=== PATIENT | female | born 1950 | race Two or more races ===

== ENCOUNTER 2023-11-09 11:30 | Emergency (ER) | payer OTHER, SELFPAY ==
[2023-11-09] VITALS (7 sets, daily range): BP systolic 109–131; BP diastolic 64–90; BMI 30.5
--- NOTE | 2023-11-09 12:45 | ED.GENMED ---
History of Present Illness
<Kiki Nelson PA-C - Last Filed: 11/09/23 18:42>
General
Chief Complaint: Abdominal Pain
Source: patient
Exam Limitations: none
Time Seen by Provider: 11/09/23 12:14
Nursing documentation reviewed up to this point in time: agreed with
History of Present Illness
History of Present Illness:
Patient is a 73-year-old female presenting to the emergency department for evaluation of abdominal pain with associated nausea, vomiting, and diarrhea. Patient states that she started with some upper abdominal discomfort yesterday evening and then
around 3 AM she began with significant nausea associate with multiple episodes of vomiting diarrhea. Patient states she has had vomiting and diarrhea episodes all morning. States she is feels dehydrated and mildly weak. She was seen in an urgent
care facility's morning who recommended that she come to the emergency department for ultrasound and further evaluation.
Patient denies any fevers. Patient denies any chest pain or shortness of breath. Patient denies any urinary symptoms.
Patient denies any blood in her stool. Patient denies any recent antibiotic use or hospitalizations.
Patient has had a hysterectomy, cholecystectomy, and appendectomy in the past.
Review of Systems
<Kiki Nelson PA-C - Last Filed: 11/09/23 18:42>
Review of Systems
Allergies reviewed?: Yes
All Other Systems: ROS reviewed and negative except as documented in HPI and ROS
Phy Exam
<Kiki Nelson PA-C - Last Filed: 11/09/23 18:42>
Physical Exam
Physical Exam:
Vitals: Patient's vital signs are stable. Afebrile
General: Patient is well appearing, no acute distress. Nontoxic-appearing
Skin: Warm and dry, no rashes or lesions
Head: Normocephalic, atraumatic
Eyes: Sclera nonicteric. EOMs intact. No nystagmus.
Throat: Protecting airway
Neck: Normal ROM, no cervical spine tenderness, no meningismus
Cardiac: Regular rate and rhythm, no murmurs.
Pulm: Normal respiratory effort, no wheezes, rales, rhonchi heard on exam.
Abdomen: Abdomen soft. Mild diffuse abdominal tenderness without rebound tenderness or guarding. Well-healing scars in right upper quadrant and right lower quadrant from prior cholecystectomy and appendectomy. Well-healing vertical incision in
suprapubic region from prior hysterectomy.
Extremities: No evidence of cyanosis or edema. Great distal pulses
Neuro: AAOx3. CN II-XII intact. No focal neurologic deficits.
Psychiatric: Normal affect.
Course
<Kiki Nelson PA-C - Last Filed: 11/09/23 18:42>
Orders/Labs/Results
Orders:
Orders
11/09/23 12:46
0.9% Sodium Chloride 1000 ml [Nss] 1,000 ml IV BOLUS
Ondansetron Injectable [Zofran] 4 mg IV NOW STA
11/09/23 12:49
Electrocardiogram (*1) Urgent
Reason for Study: Abdominal Pain
CT Abd/Pel (IV only)-[facility] only Urgent
Comment:
Reason For Exam: lower abdominal pain, N/V, diarrhea
EKG- Treatment ONCE
11/09/23 12:51
Basic Metabolic Panel Urgent
Complete Blood Count/With Diff Urgent
Lipase Urgent
11/09/23 15:01
Urinalysis Reflex To Culture Urgent
Date Specimen was Collected: 11/09/23
Time Specimen was Collected: 14:58
11/09/23 15:29
Comprehensive Metabolic Panel Urgent
Abnormal Lab Results
11/09/23 11/09/23
12:51 15:29
WBC 10.9 H 10^3/uL
(4.8-10.8)
MCH 32.2 H pg
(27.0-31.0)
Absolute Neuts (auto) 8.8 H 10^3/uL
(1.4-6.5)
Absolute Monos (auto) 0.8 H 10^3/uL
(0.1-0.6)
Neutrophils % 80.8 H %
(42.2-75.2)
Lymphocytes % 11.1 L %
(20.5-51.1)
Glucose 105 H mg/dl 104 H mg/dl
(70-99) (70-99)
11/09/23 12:51
11/09/23 15:29
Vital Signs
Initial and Last Documented VS:
Initial Vital Signs
Temp Pulse Resp BP Pulse Ox
98.6 F 88 18 131/90 100
11/09/23 11:38 11/09/23 11:38 11/09/23 11:38 11/09/23 11:38 11/09/23 11:38
Last Documented Vital Signs
Temp Pulse Resp BP Pulse Ox
98.6 F 79 19 109/77 97
11/09/23 11:38 11/09/23 17:04 11/09/23 17:04 11/09/23 17:04 11/09/23 17:04
<Christophe Ferrari MD - Last Filed: 11/09/23 18:58>
Orders/Labs/Results
Orders:
Orders
11/09/23 12:46
0.9% Sodium Chloride 1000 ml [Nss] 1,000 ml IV BOLUS
Ondansetron Injectable [Zofran] 4 mg IV NOW STA
11/09/23 12:49
Electrocardiogram (*1) Urgent
Reason for Study: Abdominal Pain
CT Abd/Pel (IV only)-[facility] only Urgent
Comment:
Reason For Exam: lower abdominal pain, N/V, diarrhea
EKG- Treatment ONCE
11/09/23 12:51
Basic Metabolic Panel Urgent
Complete Blood Count/With Diff Urgent
Lipase Urgent
11/09/23 15:01
Urinalysis Reflex To Culture Urgent
Date Specimen was Collected: 11/09/23
Time Specimen was Collected: 14:58
11/09/23 15:29
Comprehensive Metabolic Panel Urgent
Abnormal Lab Results
11/09/23 11/09/23
12:51 15:29
WBC 10.9 H 10^3/uL
(4.8-10.8)
MCH 32.2 H pg
(27.0-31.0)
Absolute Neuts (auto) 8.8 H 10^3/uL
(1.4-6.5)
Absolute Monos (auto) 0.8 H 10^3/uL
(0.1-0.6)
Neutrophils % 80.8 H %
(42.2-75.2)
Lymphocytes % 11.1 L %
(20.5-51.1)
Glucose 105 H mg/dl 104 H mg/dl
(70-99) (70-99)
11/09/23 12:51
11/09/23 15:29
Vital Signs
Initial and Last Documented VS:
Initial Vital Signs
Temp Pulse Resp BP Pulse Ox
98.6 F 88 18 131/90 100
11/09/23 11:38 11/09/23 11:38 11/09/23 11:38 11/09/23 11:38 11/09/23 11:38
Last Documented Vital Signs
Temp Pulse Resp BP Pulse Ox
98.6 F 79 19 109/77 97
11/09/23 11:38 11/09/23 17:04 11/09/23 17:04 11/09/23 17:04 11/09/23 17:04
<Kiki Nelson PA-C - Last Filed: 11/09/23 18:42>
MDM/Problems Addressed
Differential Diagnosis Includes:
Not limited to: Viral gastritis, colitis, diverticulitis, cystitis, nephrolithiasis, pancreatitis,
MDM/Problems Addressed:
73-year-old female with no significant past medical history presenting with 1 day of upper abdominal pain and nausea, vomiting, diarrhea. Sent by urgent care for abdominal ultrasound. Vital stable on arrival. She is afebrile. Exam as above.
Surgical scars present in abdomen from prior cholecystectomy, appendectomy and hysterectomy. Abdomen is soft with mild diffuse tenderness. No rebound tenderness or guarding. There is no CVA tenderness. Is well-appearing, nontoxic-appearing.
Labs are obtained which show a very mild leukocytosis with a white count of 10.9�likely reactive. Otherwise no clinically significant abnormalities. Lipase normal. Patient was given a liter of IV fluids and 4 of Zofran. Urine shows no signs of
infection. CT is pending.
Patient was monitored in the emergency department for few hours while CT report was pending. She has had no episodes of vomiting. Patient has also had no episodes of diarrhea and has been unable to provide stool sample for culture although no risk
factors for bacterial etiology of diarrhea. CT scan does show findings consistent with possible enteritis. This would describe patient's symptoms. Otherwise there were a few incidental findings found on CT scan including nodule in right lung and
left adnexal area cyst. Patient was given CT report document any findings to have been followed up by her primary care/[facility]. Otherwise at this time patient is stable for discharge�no indication for admission at this time. Suspect likely viral
enteritis. Return precautions discussed. Patient comfortable with plan. All questions answered.
Chronic conditions affecting care:
N/A
Acute Exacerbation and/or Progression of Chronic Illness:
N/A
<Kiki Nelson PA-C - Last Filed: 11/09/23 18:42>
*Radiology
Radiology exam reviewed: radiology read reviewed
*Pulse Oximetry
Patient hypoxic: no
*EKG
Interpreted by ED Provider?: Yes
EKG Intrepretation Date: 11/09/23
Interpretation: normal
Comparison EKG: no comparison EKG present
Heart Rate: 69
Rate: normal
Rhythm: sinus
Ischemia: no ischemia
*Echocardiography Radiology Technologist Interpretation
Rate: Echocardiography Radiology Technologist- N/A
*Critical Care Note
Total Time (30-74mins, 75-104mins- exclusive of procedures): Not Applicable
ED Attending Note
<Kkii Nelson PA-C - Last Filed: 11/09/23 18:42>
-
Portions of this chart may have been created with voice recognition software.� Occasional wrong word or��sound alike� substitutions may have occurred due to the inherent limitations of voice recognition software.
<Christophe Ferrari MD - Last Filed: 11/09/23 18:58>
ED Attending Note
Patient seen and examined by attending physician: Yes
I performed the substantive portion of visit, reviewed & personally made and approve the management plan that is documented in note by myself or NICKY.: Yes
ED Attending Note:
73-year-old female started with nausea vomiting diarrhea some vague abdominal symptoms. Symptoms started yesterday. On exam patient is nontoxic in no distress. Warm and dry. Lungs clear and equal. Heart regular rate and rhythm no murmur.
Abdomen soft. Multiple old scars. Mild epigastric tenderness. No rebound or guarding no mass or hernia. Labs are stable. CT scan with no acute findings except for enteritis. No indication for admission. Symptomatic treatment and follow-up.
Patient given a copy of the CT report for follow-up of her adnexal cyst and pulmonary nodule.
Discharge Plan
Departure
Patient Disposition: Home (Routine Discharge)
Date of Disposition: 11/09/23
Time of Disposition: 16:35
Patient with high blood pressure during this ER visit?: No
Condition: Good
Covid-19: Not Applicable
Discharge Problem:
Nausea, vomiting and diarrhea, Abdominal pain
Instructions: Nausea and Vomiting, Adult (DC), Diarrhea, Adult ED, Abdominal Pain
Referrals:
Pasha Ryan MD [Family Provider] - Follow up in 5-7 days
Activity Restrictions/Additional Instructions:
RETURN TO EMERGENCY DEPARTMENT WITH ANY FEVERS, CHILLS, INTRACTABLE NAUSEA/VOMITING, SEVERE ABDOMINAL PAIN, SIGNS OF SEVERE DEHYDRATION, WORSENING IN CURRENT SYMPTOMS, OR ANY OTHER CONCERNS
-As discussed�there were a few incidental finding seen on your CT scan today. You should follow-up with your primary care provider for further evaluation of nodule in your right lung and a cyst near your left ovary. These may require follow-up
imaging.
-You should stay well-hydrated. Eat a bland diet over the next few days and advance as tolerated.
-Follow-up with your primary care provider for further evaluation/management to ensure that symptoms are improving
Interventions
Interventions:
*Risk Screen - Suicide Last Done: 11/09/23 12:38
*General Assessment Last Done: 11/09/23 12:38
*Neglect/Abuse Screening Last Done: 11/09/23 12:38
ED- Fall Risk Assessment Last Done: 11/09/23 12:38
*ED COVID-19 Vaccine History Last Done: 11/09/23 12:38
*Nursing Disposition Last Done: 11/09/23 17:04
OG-Vhjyys-Wjmzzrcair Assessment Last Done: 11/09/23 12:38
Discharge Date and Time
Discharge Date/Time: 11/09/23 17:05
Print Language: Panamanian
[2023-11-09] MEDS: ZOFRAN 4 MG IV (12:56)
[2023-11-09] MEDS: NSS 1000 IV (12:56)
[2023-11-09 13:11] LABS: % Basophils 0.3 % (0-2); % Eosinophils 0.6 % (0-6); % Immature Granulocytes 0.3 % (0-0.5); % Lymphocytes 11.1 % (20.5-51.1); % Monocytes 6.9 % (1.7-9.3); % Neutrophils 80.8 % (42.2-75.2); Absolute Eosinophils 0.1 10^3/uL (0-0.7); Absolute Lymphocytes 1.2 10^3/uL (1.2-3.4); Absolute Monocytes 0.8 10^3/uL (0.1-0.6); Absolute Neutrophils 8.8 10^3/uL (1.4-6.5); Hematocrit 39.3 % (37.0-47.0); Hemoglobin 13.7 g/dL (12.0-16.0); Mean Corp Hgb Conc. 34.9 g/dL (33.0-37.0); Mean Corpuscular Hgb 32.2 pg (27.0-31.0); Mean Corpuscular Volume 92.5 fL (81.0-99.0); Mean Platelet Volume 10.1 fL (7.4-10.4); Nucleated Red Blood Cells % 0 %; Platelet Count 260 10^3/uL (130-400); Red Blood Cell Count 4.25 10^6/uL (4.20-5.40); White Blood Cell Count 10.9 10^3/uL (4.8-10.8)
[2023-11-09 13:21] LABS: Blood Urea Nitrogen 14 mg/dl (7-17); Calcium 9.3 mg/dl (8.4-10.2); Carbon Dioxide 27 mmol/L (22-30); Chloride 102 mmol/L (98-107); Estimated Creatinine Clearance 72 ml/min; Glucose 105 mg/dl (70-99); Lipase 83 U/L (23-300); Sodium 136 mmol/L (135-145); eGFR > 60.00
[2023-11-09 15:12] LABS: Urine Albumin Negative (Neg - Trace); Urine Bilirubin Negative (Negative); Urine Character Clear (Clear); Urine Color Yellow; Urine Glucose Negative (Negative); Urine Ketone Negative (Negative); Urine Leukocyte Negative (Negative); Urine Nitrite Negative (Negative); Urine Occult Blood Negative (Negative); Urine Specific Gravity 1.005 (<1.030); Urine Urobilinogen Negative (Neg - 1+)
[2023-11-09 16:21] LABS: ALT (SGPT) 15 U/L (0-35); AST (SGOT) 21 U/L (14-36); Alkaline Phosphatase 70 U/L (38-126); Blood Urea Nitrogen 12 mg/dl (7-17); Calcium 8.9 mg/dl (8.4-10.2); Carbon Dioxide 24 mmol/L (22-30); Chloride 105 mmol/L (98-107); Estimated Creatinine Clearance 72 ml/min; Glucose 104 mg/dl (70-99); Potassium 4.4 mmol/L (3.5-5.1); Sodium 137 mmol/L (135-145); Total Bilirubin 1.3 mg/dl (0.2-1.3); Total Protein 6.7 g/dl (6.3-8.2); eGFR > 60.00
== END 2023-11-09 17:05 | disposition home or self-care (01) ==
LOC: EMR 11:30
PROVIDERS: Physician Assistant; EMERGENCY PHYSICIAN Emergency Medicine; FAMILY PHYSICIAN Internal Medicine
DX: R11.2 Nausea with vomiting, unspecified (principal); R19.7 Diarrhea, unspecified; R10.30 Lower abdominal pain, unspecified; R53.1 Weakness; R91.1 Solitary pulmonary nodule; Z90.49 Acquired absence of other specified parts of digestive tract; Z88.8 Allergy status to other drugs, medicaments and biological substances
CPT/HCPCS: 99285; 96361; 96374; 74177; 80048; 80053; 81003; 83690; 85025; 93005; Q9967